=== PATIENT | female | born 1960 | race African-American/Black ===

== ENCOUNTER 2017-10-14 12:20 | Emergency (ER) | payer OTHER ==
[~2017-10-14] VITALS: Ht 170.2 cm; Wt 78.0 kg
[~2017-10-14 12:20] MED LIST: ALBU2.5I INH; IPRA0.02 NEB; LEVA500T PO; PRED10 PO
[2017-10-14 12:24] VITALS: BP 162/118; PULSE 115; RESP 24; TEMP 99.8; O2SAT 96
[2017-10-14] MEDS ORDERED: KETOROLAC TROMETHAMINE 30 MG/ML (IVP) VIAL IV PUSH ONE (12:45)
[2017-10-14] MEDS ORDERED: SODIUM CHLORIDE 0.9% FLUSH 10 ML FLUSH IVF PRN (12:45)
[2017-10-14] MEDS ORDERED: methylPREDNISolone SOD SUCC 125 MG/2 ML VIAL IV PUSH ONE (12:45)
[2017-10-14] MEDS ORDERED: ONDANSETRON HCL 4 MG/2 ML VIAL IV PUSH ONE (12:45)
[2017-10-14] MEDS ORDERED: SODIUM CHLOR 0.9% 1000 ML INJ 1,000 ML IV ONE (12:45)
[2017-10-14] MEDS: RESP: ALBUTEROL 2.5 MG/IPRATROPIUM 0.5 MG NEB (SCH) INH (12:46)
[2017-10-14 12:54] LABS: AUTOMATED NEUTROPHIL # 8.1 TH/MM3 (1.8-7.7); BASOPHIL # 0.1 TH/MM3 (0-0.2); BASOPHIL % 0.9 % (0.0-2.0); EOSINOPHIL % 0.1 % (0.0-4.0); HEMATOCRIT 44.6 % (35.0-46.0); HEMOGLOBIN 15.4 GM/DL (11.6-15.3); LYMPHOCYTE # 2.3 TH/MM3 (1.0-4.8); MEAN CELL VOLUME 92.4 FL (80.0-100.0); MEAN CORPUSCULAR HEMOGLOBIN 31.8 PG (27.0-34.0); MEAN CORPUSCULAR HGB CONC 34.4 % (32.0-36.0); MEAN PLATELET VOLUME 7.8 FL (7.0-11.0); MONO % 5.3 % (0.0-8.0); MONOCYTE # 0.6 TH/MM3 (0-0.9); NEUT % 72.7 % (16.0-70.0); PLATELET COUNT 241 TH/MM3 (150-450); RED BLOOD COUNT 4.82 MIL/MM3 (4.00-5.30); WHITE BLOOD COUNT 11.2 TH/MM3 (4.0-11.0)
[2017-10-14 13:06] LABS: PROTHROMBIN TIME - PATIENT 10.4 SEC (9.8-11.6)
[2017-10-14 13:10] LABS: ALBUMIN 4.2 GM/DL (3.4-5.0); AST (GOT) 21 U/L (15-37); BICARBONATE 23.7 MEQ/L (21.0-32.0); BLOOD UREA NITROGEN 10 MG/DL (7-18); CHLORIDE 102 MEQ/L (98-107); CREATININE 0.75 MG/DL (0.50-1.00); GLOMERULAR FILTRATION RATE 96 ML/MIN (>89); GLUCOSE,RANDOM 113 MG/DL (74-106); SODIUM (NA) 136 MEQ/L (136-145)
[2017-10-14 13:12] LABS: ALT (GPT) 18 U/L (10-53)
[2017-10-14 13:14] LABS: ALKALINE PHOSPHATASE 65 U/L (45-117); TOTAL BILIRUBIN ADULT 1.1 MG/DL (0.2-1.0); TOTAL PROTEIN 8.9 GM/DL (6.4-8.2)
--- NOTE | 2017-10-14 13:29 | RADRPT ---
EXAM DATE/TIME: 10/14/2017 12:51 [place] COMPARISON: CHEST SINGLE AP, July 22, 2015, 14:46. INDICATIONS : Short of breath. MEDICAL HISTORY : None. SURGICAL HISTORY : None. ENCOUNTER: Initial ACUITY: 4 - 6 days PAIN SCORE: 0/10 LOCATION: Bilateral chest FINDINGS: A single view of the chest demonstrates the lungs to be symmetrically aerated without evidence of mas s, infiltrate or effusion. The cardiomediastinal contours are unremarkable. Osseous structures are intact. CONCLUSION: 1. No acute cardiopulmonary disease. Hemal Estrella MD on October 14, 2017 at 13:26 Board Certified Radiologist. This report was verified electronically.
[2017-10-14 14:31] LABS: BLOOD, URINE TRACE (NEG); GLUCOSE,URINE NEG (NEG); KETONE, URINE 150 mg/dL (NEG); MUCUS URINE MANY /lpf (OCC); NITRITE,URINE NEG (NEG); PH, URINE 5.5 (5.0-8.5); SQUAMOUS EPITHELIAL CELL URINE 1 /hpf (0-5); URINE COLOR YELLOW (YELLW/STRAW); URINE LEUKOCYTE ESTERASE NEG (NEG)
[2017-10-14 14:34] LABS: BILIRUBIN, URINE NEG (NEG)
[2017-10-14 14:47] VITALS: BP 133/90; PULSE 94; RESP 20; O2SAT 98
[2017-10-14] MEDS ORDERED: ZITHTAB PO (14:56)
[2017-10-14] MEDS ORDERED: ALBUAER3 INH (14:56)
[2017-10-14] MEDS ORDERED: PRED50 PO (14:56)
--- NOTE | 2017-10-14 14:56 | PD ---
HPI Chief Complaint: GI Complaint Time Seen by Provider: 12:31 Travel History International Travel<30 days: No Contact w/Intl Traveler<30days: No Traveled to known affect area: No History of Present Illness HPI Patient is a 57 year old female who comes in complaining of cough, congestion, nausea and abdominal pain. She says she has felt feverish and chills while at home. She says she has pain all over. She tried using Jonna seltzer plus at home without relief of her symptoms. She denies any sick contacts. She has felt nauseous and has been spitting up mucus, but she has not had vomiting. She denies urinary symptoms. She did not get a flu shot this year. [facility] Past Medical History Anemia: Yes (chronic) Asthma: Yes Cardiovascular Problems: No Diminished Hearing: No Genitourinary: No Hypertension: Yes Immune Disorder: No Musculoskeletal: No Neurologic: Yes Psychiatric: No Reproductive: No Respiratory: Yes Influenza Vaccination: No : 2 Para: 2 Tubal Ligation: Yes Past Surgical History Abdominal Surgery: Yes (HERNIA) Social History Alcohol Use: Yes (occas) Tobacco Use: No Substance Use: No Allergies-Medications (Allergen,Severity, Reaction): Coded Allergies: No Known Allergies (Verified , 12/11/13) Reported Meds & Prescriptions Reported Meds & Active Scripts Active No Active Prescriptions or Reported Medications Review of Systems Except as stated in HPI: all other systems reviewed are Neg General / Constitutional: Positive: Fever, Chills HENT: Positive: Congestion, No: Headaches, Lightheadedness Cardiovascular: No: Chest Pain or Discomfort Respiratory: Positive: Cough Gastrointestinal: Positive: Nausea, Abdominal Pain, No: Vomiting Genitourinary: No: Dysuria Skin: No Rash, No Change in Pigmentation Neurologic: No: Weakness, Dizziness Physical Exam Narrative GENERAL: Awake and alert, in no acute distress. SKIN: Focused skin assessment warm/dry. No wounds or signs of infection. HEAD: Atraumatic. Normocephalic. EYES: Pupils equal and round. No scleral icterus. No injection or drainage. ENT: Mucous membranes pink and moist. NECK: Trachea midline. No JVD. CARDIOVASCULAR: Tachycardia. No murmur appreciated. RESPIRATORY: No accessory muscle use. Coarse breath sounds throughout both lungs. Breath sounds equal bilaterally. GASTROINTESTINAL: Abdomen soft, nondistended. Mild diffuse tenderness to palpation, no rebound or guarding. MUSCULOSKELETAL: No obvious deformities. No clubbing. No cyanosis. No edema. NEUROLOGICAL: Awake and alert. No obvious cranial nerve deficits. Motor grossly within normal limits. Normal speech. PSYCHIATRIC: Appropriate mood and affect; insight and judgment normal. Data Data Last Documented VS Vital Signs Date Time Temp Pulse Resp B/P (MAP) Pulse Ox O2 Delivery O2 Flow Rate FiO2 10/14/17 13:42 18 10/14/17 12:24 99.8 115 162/118 (133) 96 Orders Orders Complete Blood Count With Diff (10/14/17 12:34) Comprehensive Metabolic Panel (10/14/17 12:34) Act Partial Throm Time (Ptt) (10/14/17 12:34) Prothrombin Time / Inr (Pt) (10/14/17 12:34) Urinalysis - C+S If Indicated (10/14/17 12:34) Influenzae A/B Antigen (10/14/17 12:34) Iv Access Insert/Monitor (10/14/17 12:34) Ecg Monitoring (10/14/17 12:34) Oximetry (10/14/17 12:34) Oxygen Administration (10/14/17 12:34) Chest, Single Ap (10/14/17 12:34) Sodium Chloride 0.9% Flush (Ns Flush) (10/14/17 12:45) Methylprednisolone So Succ Inj (Solumedr (10/14/17 12:45) Albuterol-Ipratropium Neb (Duoneb Neb) (10/14/17 12:45) Sodium Chlor 0.9% 1000 Ml Inj (Ns 1000 M (10/14/17 12:45) Ketorolac Inj (Toradol Inj) (10/14/17 12:45) Ondansetron Inj (Zofran Inj) (10/14/17 12:45) Labs Laboratory Tests Test 10/14/17 12:40 10/14/17 14:10 White Blood Count 11.2 TH/MM3 Red Blood Count 4.82 MIL/MM3 Hemoglobin 15.4 GM/DL Hematocrit 44.6 % Mean Corpuscular Volume 92.4 FL Mean Corpuscular Hemoglobin 31.8 PG Mean Corpuscular Hemoglobin Concent 34.4 % Red Cell Distribution Width 14.0 % Platelet Count 241 TH/MM3 Mean Platelet Volume 7.8 FL Neutrophils (%) (Auto) 72.7 % Lymphocytes (%) (Auto) 21.0 % Monocytes (%) (Auto) 5.3 % Eosinophils (%) (Auto) 0.1 % Basophils (%) (Auto) 0.9 % Neutrophils # (Auto) 8.1 TH/MM3 Lymphocytes # (Auto) 2.3 TH/MM3 Monocytes # (Auto) 0.6 TH/MM3 Eosinophils # (Auto) 0.0 TH/MM3 Basophils # (Auto) 0.1 TH/MM3 CBC Comment DIFF FINAL Differential Comment Prothrombin Time 10.4 SEC Prothromb Time International Ratio 1.0 RATIO Activated Partial Thromboplast Time 22.1 SEC Blood Urea Nitrogen 10 MG/DL Creatinine 0.75 MG/DL Random Glucose 113 MG/DL Total Protein 8.9 GM/DL Albumin 4.2 GM/DL Calcium Level 10.0 MG/DL Alkaline Phosphatase 65 U/L Aspartate Amino Transf (AST/SGOT) 21 U/L Alanine Aminotransferase (ALT/SGPT) 18 U/L Total Bilirubin 1.1 MG/DL Sodium Level 136 MEQ/L Potassium Level 3.4 MEQ/L Chloride Level 102 MEQ/L Carbon Dioxide Level 23.7 MEQ/L Anion Gap 10 MEQ/L Estimat Glomerular Filtration Rate 96 ML/MIN Urine Color YELLOW Urine Turbidity CLEAR Urine pH 5.5 Urine Specific [place] 1.029 Urine Protein 30 mg/dL Urine Glucose (UA) NEG mg/dL Urine Ketones 150 mg/dL Urine Occult Blood TRACE Urine Nitrite NEG Urine Bilirubin NEG Urine Urobilinogen 2.0 MG/DL Urine Leukocyte Esterase NEG Urine RBC 2 /hpf Urine WBC 1 /hpf Urine Squamous Epithelial Cells 1 /hpf Urine Mucus MANY /lpf Microscopic Urinalysis Comment CULT NOT INDICATED MDM Medical Decision Making Medical Screen Exam Complete: Yes Emergency Medical Condition: Yes Medical Record Reviewed: Yes Differential Diagnosis influenza vs pneumonia vs bronchitis Narrative Course Patient is a 57-year-old female who comes in complaining of body aches, cough and congestion. Exam shows coarse breath sounds at both lungs. IV established , labs sent. Labs show a mild elevation 11.5. Chest x-ray performed shows no acute abnormalities. Patient given DuoNeb nebs, Solu-Medrol, IV fluids, Toradol, Zofran. Patient reports feeling mild improvement. She'll be discharged with prescriptions for prednisone, albuterol, azithromycin. She is advised follow- up with a primary care doctor. Advised to return to the ED as needed for any worsening symptoms. Diagnosis Primary Impression: Bronchitis Patient Instructions: Acute Bronchitis (ED), General Instructions Additional Instructions: Follow-up with a primary care doctor. Take all of her antibiotic. Take the prednisone starting tomorrow as you have steroids already today. His albuterol as needed for shortness of breath. Scripts Azithromycin (Zithromax Z-Fernando) 250 Mg Dspk 250 MG PO DIRECTED for Infection, #1 DSPK 0 Refills 500 MG (2 tabs) day 1, then 1 tab days 2-5. Prov: Aliyah Alexandre MD 10/14/17 Albuterol 8.5 GM Inh (Proair Hfa 8.5 GM Inh) 90 Mcg/Act Aer 2 PUFF INH Q4-6H Y for SHORTNESS OF BREATH, #1 INHALER 0 Refills 108 mcg/actuation Prov: Aliyah Alexandre MD 10/14/17 Prednisone (Prednisone) 50 Mg Tab 50 MG PO DAILY for 4 Days, #4 TAB 0 Refills Prov: Aliyah Alexandre MD 10/14/17 Disposition: 01 DISCHARGE HOME Condition: Stable Aliyah Alexandre MD Oct 14, 2017 14:56
== END 2017-10-14 15:21 | disposition home or self-care (01) ==
LOC: NEPC 12:20
DX: J40 Bronchitis, not specified as acute or chronic (principal); R11.0 Nausea
CPT/HCPCS: 71010; 80053; 81001; 85025; 85610; 85730; 87804; 94664; 96374; 96375; 99284; J1885; J2405; J2930; J7030